=== PATIENT | female | born 1960 ===

== ENCOUNTER 2021-08-31 17:46 | Outpatient (CLI) | payer OTHER ==
--- NOTE | 2021-08-31 22:15 | XRAY Report ---
PROCEDURE: Foot 3 View LT INDICATIONS: LEFT FOOT PAIN TECHNIQUE: 3 views of the foot were acquired. COMPARISON: None FINDINGS: Bones: There is a fracture of the base of the proximal phalanx of the fifth toe medially. No suspicio us bony lesions. There are degenerative changes of the interphalangeal joints. Soft tissues: No tibiotalar joint effusion. Achilles tendon appears normal. IMPRESSION: Fracture of the base of the proximal phalanx of the fifth toe medially. Reviewed by: Clifton Faulkner on 08/31/2021 10:14 PM PDT Approved by: Clifton Faulkner on 08/31/2021 10:14 PM PDT Station ID: [id number]
== END 2021-08-31 23:59 ==
LOC: DI.N 17:46
PROVIDERS: ATTEND Family Medicine
DX: S92.512A Displaced fracture of proximal phalanx of left lesser toe(s), initial encounter for closed fracture (principal)